=== PATIENT | male | born 1955 | race Hispanic/Latino ===

== ENCOUNTER → 2021-10-08 | Day surgery (SDC) | payer BC ==
[~2021-10-08] MED LIST: DEXAMETHASONE PHOS 24 MG/ML 10ML VIAL ONE; FISH OIL 1,0001 EAC2; GLIPIZIDE5 MG PO; LISINOPRIL10 MG PO; METFORMIN HCL500 MG PO; MIDAZOLAM HCL 2 MG/2 ML VIAL ONE; NEURONTIN100 MG PO; OFLOXACIN 0.3% (OTIC SOL) 5 ML BTL ONE; SIMVASTATIN20 MG PO
[2021-10-08 11:25] VITALS: BP 147/69
== END | disposition home or self-care (01) ==
LOC: OR 07:28
PROVIDERS: ATTEND Otolaryngology Otolaryngology/Facial Plastic Surgery
DX: H91.23 Sudden idiopathic hearing loss, bilateral (principal); H74.01 Tympanosclerosis, right ear; E11.9 Type 2 diabetes mellitus without complications; I10 Essential (primary) hypertension; I45.10 Unspecified right bundle-branch block; R00.1 Bradycardia, unspecified; Z79.84 Long term (current) use of oral hypoglycemic drugs; Z79.899 Other long term (current) drug therapy
CPT/HCPCS: 36415; 69436; 71046; 82948; 93005; J2250